=== PATIENT | male | born 1990 | race African-American/Black ===

== ENCOUNTER 2025-02-21 19:58 | Emergency (ER) | payer OTHER ==
[~2025-02-21] VITALS: Ht 175.3 cm; Wt 81.9 kg
[2025-02-21 23:09] VITALS: TEMP 97.5
[2025-02-22] MEDS: KETOROLAC 30 MG/ML 1 ML VIAL IM ONE (00:20)
[2025-02-22 00:36] VITALS: BP 130/83; O2SAT 97
== END 2025-02-22 00:38 | disposition home or self-care (01) ==
LOC: M ED 19:58
DX: S39.012A Strain of muscle, fascia and tendon of lower back, initial encounter (principal); V43.52XA Car driver injured in collision with other type car in traffic accident, initial encounter; M25.511 Pain in right shoulder; M79.631 Pain in right forearm; Y92.410 Unspecified street and highway as the place of occurrence of the external cause; Y93.89 Activity, other specified; Y99.9 Unspecified external cause status
CPT/HCPCS: 70450; 72125; 72131; 73030; 73060; 96372; 99284; J1885